=== PATIENT | male | born 1980 | race Caucasian/White ===

== ENCOUNTER 2018-06-21 17:28 | Emergency (ER) | payer OTHER ==
[2018-06-21 17:37] VITALS: RESP 18
--- NOTE | 2018-06-21 18:01 | ED PDOC ---
HPI: Hypertension/Hypotension Time Seen by Provider: 06/21/18 17:55 Chief Complaint (Nursing): High Blood Pressure Chief Complaint (Provider): Accidental drug injection History Per: Patient History/Exam Limitations: no limitations Additional Complaint(s): Pt states he accidentally injected himself with his daughter's Epipen (4:30 PM today) which he thought was a demonstration syringe. Pt c/o L sided CP and SOB that has since resolved. Now with lightheadedness and sensitivity to light. Past Medical History Reviewed: Nursing Documentation, Vital Signs Vital Signs: Last Vital Signs Temp 98.3 F 06/21/18 17:34 Pulse 75 06/21/18 17:34 Resp 18 06/21/18 17:34 BP 157/84 H 06/21/18 17:34 Pulse Ox 100 06/21/18 17:34 - Medical History PMH: HTN (noncompliant with meds) - Family History Family History: States: Unknown Family Hx - Living Arrangements Living Arrangements: With Family - Social History Current smoker - smoking cessation education provided: No Alcohol: None - Home Medications Home Medications: Ambulatory Orders Medication Instructions Recorded Oxycodone HCl/Acetaminophen 1 tab PO Q6 PRN #16 tab 10/26/14 [Percocet 325 mg-5 mg] amLODIPine [Norvasc] 10 mg PO QAM #30 tab 10/26/14 - Allergies Allergies/Adverse Reactions: Allergies Allergy/AdvReac Type Severity Reaction Status Date / Time No Known Allergies Allergy Verified 06/21/18 17:34 Review of Systems Constitutional: Negative for: Fever, Chills Cardiovascular: Positive for: Chest Pain. Negative for: Palpitations Respiratory: Positive for: Shortness of Breath. Negative for: Cough Gastrointestinal: Negative for: Abdominal Pain Neurological: Negative for: Weakness, Numbness, Incoordination, Change in Speech, Confusion, Seizures, Altered Mental Status, Headache, Dizziness Physical Exam - Reviewed Nursing Documentation Reviewed: Yes Vital Signs Reviewed: Yes - Physical Exam Appears: Positive for: Well, No Acute Distress Head Exam: Positive for: ATRAUMATIC, NORMAL INSPECTION Skin: Positive for: Normal Color, Warm, Dry Eye Exam: Positive for: Normal appearance, EOMI, PERRL Cardiovascular/Chest: Positive for: Regular Rate, Rhythm Respiratory: Positive for: Normal Breath Sounds Gastrointestinal/Abdominal: Positive for: Bowel Sounds, Soft, Other (Puncture R hip). Negative for: Tenderness Extremity: Positive for: Normal ROM Neurological/Psych: Positive for: Awake, Alert, Oriented - Laboratory Results Result Diagrams: 06/21/18 18:54 06/21/18 18:54 - ECG O2 Sat by Pulse Oximetry: 100 Disposition - Clinical Impression Clinical Impression: Accidental epinephrine poisoning - Disposition Disposition: Transfer of Care Disposition Time: 19:00 Condition: STABLE Additional Instructions: Follow up with primary medical doctor within one week. Contact your daughter's stock roller for a refill epi-pen. Return to the emergency department if symptoms worsen or if new symptoms develop. Forms: [employer] (Icelandic) Print Language: TAIWANESE Patient Signed Over To: Diane Cesar
--- NOTE | 2018-06-21 18:32 | RAD ---
Date of service: 06/21/2018 HISTORY: Hypertension. COMPARISON: No prior. TECHNIQUE: Chest PA and lateral views FINDINGS: LUNGS: No active pulmonary disease. PLEURA: No significant pleural effusion identified. No pneumothorax apparent. CARDIOVASCULAR: No aortic atherosclerotic calcification present. Normal cardiac size. No pulmonary vascular congestion. OSSEOUS STRUCTURES: No significant abnormalities. VISUALIZED UPPER ABDOMEN: Normal. OTHER FINDINGS: None. IMPRESSION: No active disease.
[2018-06-21 18:57] LABS: BASO % 0.4 % (0.0-2.0); EOS # 0.1 K/uL (0.0-0.7); EOS % 1.6 % (0.0-4.0); HEMOGLOBIN 14.4 g/dL (12.0-18.0); LYMPH # 1.8 K/uL (1.0-4.3); LYMPH % 27.9 % (20.0-40.0); MEAN CELL VOLUME 91.2 fl (80.0-94.0); MEAN CORPUSCULAR HEMOGLOBIN 30.7 pg (27.0-31.0); MEAN CORPUSCULAR HGB CONC 33.7 g/dL (33.0-37.0); MEAN PLATELET VOLUME 7.6 fl (7.2-11.7); MONO # 0.7 K/uL (0.0-0.8); MONO % 11.6 % (0.0-10.0); NEUT # 3.8 K/uL (1.8-7.0); NEUT % 58.5 % (50.0-75.0); NRBC % 0.1 % (0.0-0.0); RBC 4.68 Mil/uL (4.40-5.90); RED CELL DISTRIBUTION WIDTH 12.9 % (11.5-14.5); WHITE BLOOD COUNT 6.5 K/uL (4.8-10.8)
[2018-06-21 19:07] LABS: ALB/GLOB RATIO 1.2 (1.0-2.1); ALBUMIN 4.3 g/dL (3.5-5.0); ALT/SGPT 47 U/L (21-72); AST/SGOT 41 U/L (17-59); BLOOD UREA NITROGEN 13 mg/dl (9-20); CALCIUM 8.9 mg/dL (8.4-10.2); GFR NON-AFRICAN AMERICAN > 60
[2018-06-21 19:13] LABS: INR 1.1; PROTHROMBIN TIME 12.7 Seconds (9.8-13.1)
--- NOTE | 2018-06-21 19:17 | ED PDOC ---
- Laboratory Results Result Diagrams: 06/21/18 18:54 06/21/18 18:54 Lab Results: PT 12.7 Seconds (9.8-13.1) 06/21/18 18:54 INR 1.1 06/21/18 18:54 Total Bilirubin 0.6 mg/dl (0.2-1.3) 06/21/18 18:54 AST 41 U/L (17-59) 06/21/18 18:54 ALT 47 U/L (21-72) 06/21/18 18:54 Alkaline Phosphatase 109 U/L (38-126) 06/21/18 18:54 Total Protein 7.9 G/DL (6.3-8.2) 06/21/18 18:54 Albumin 4.3 g/dL (3.5-5.0) 06/21/18 18:54 Globulin 3.6 gm/dL (2.2-3.9) 06/21/18 18:54 Albumin/Globulin Ratio 1.2 (1.0-2.1) 06/21/18 18:54 - ECG O2 Sat by Pulse Oximetry: 100 (RA) Pulse Ox Interpretation: Normal Medical Decision Making Medical Decision Making: Time: 1899 --Patient had accidentally stuck himself with an pediatric Epipen. Patient signed out to this provider by Dr. De La Cruz pending cardiac workup due to ongoing chest pain and reevaluation. 2030 Pt with normal labs and vitals improved. Pt without chest pain. Will follow up with PMD as needed. Return parameters discussed. ScribeAttestation: Documented byAngeline Jean Baptiste, acting as a scribe for Diane Cesar MD. Provider ScribeAttestation: All medical record entries made by the Scribe were at my direction and personally dictated by me. I have reviewed the chart and agree that the record accurately reflects my personal performance of the history, physical exam, medical decision making, and the department course for this patient. I have also personally directed, reviewed, and agree with the discharge instructions and disposition. Disposition - Clinical Impression Clinical Impression: Accidental epinephrine poisoning - POA Present On Arrival: None - Disposition Disposition: Routine/Home Disposition Time: 20:30 Condition: IMPROVED Additional Instructions: Follow up with primary medical doctor within one week. Contact your daughter's fast food team member for a refill epi-pen. Return to the emergency department if symptoms worsen or if new symptoms develop. Forms: [employer] (Telugu) Print Language: MONGOLIAN
[2018-06-21 19:24] LABS: URINE BILIRUBIN NEGATIVE (NEGATIVE); URINE BLOOD SMALL (NEGATIVE); URINE CLARITY CLEAR (Clear); URINE COLOR YELLOW (YELLOW); URINE GLUCOSE (UA) NEG (NEGATIVE); URINE LEUKOCYTE ESTERASE NEG Leu/uL (Negative); URINE PROTEIN NEGATIVE (NEGATIVE); URINE UROBILINOGEN 0.2-1.0 mg/dL (0.2-1.0)
[2018-06-21 20:17] VITALS: BP 150/91; PULSE 70; TEMP 98.7
[2018-06-21 20:31] VITALS: O2SAT 100
--- NOTE | 2018-06-22 17:34 | CARD ---
APPROVED REPORT Date of service: 06/21/2018 EKG Measurement Heart [id number] <Conclusion> Sinus bradycardia with 1st degree AV block T wave abnormality, consider inferior ischemia Abnormal ECG
== END 2018-06-21 20:58 | disposition home or self-care (01) ==
LOC: H.ER 17:28
DX: T50.901A Poisoning by unspecified drugs, medicaments and biological substances, accidental (unintentional), initial encounter (principal); I10 Essential (primary) hypertension; Z91.14 Patient's other noncompliance with medication regimen